=== PATIENT | female | born 1995 | race Two or more races ===

== ENCOUNTER → 2018-07-19 | Outpatient (CLI) | payer BC ==
--- NOTE | 2018-07-19 09:07 | US ---
EXAMINATION TYPE: US pelvic complete DATE OF EXAM: 07/19/2018 COMPARISON: NONE CLINICAL HISTORY: N93.8 Dysfunctional Uterine Bleeding. Abnormal uterine bleeding, pt states vaginal bleeding since April TECHNIQUE: Transabdominal (TA). Transabdominal sonographic images of the pelvis were acquired. Date of LMP: April EXAM MEASUREMENTS: Uterus: 8.0 x 3.2 x 7.0 cm Endometrial Stripe: 1.14 left, 1.1 right. Right Ovary: 3.0 x 2.7 x 2.1 cm Left Ovary: 1.5 x 2.2 x 1.4 cm 1. Uterus: Anteverted Bicornuate 2. Endometrium: Right Horn= 1.1 cm/ Left Horn= 1.1 cm 3. Right Ovary: Cyst= 2.3 x 2.0 x 1.7 cm 4. Left Ovary: wnl 5. Bilateral Adnexa: wnl 6. Posterior cul-de-sac: wnl Bicornuate uterus IMPRESSION: 1. Bicornuate uterus. 2. Right ovarian cyst. Follow-up ultrasound following the next normal menstrual period is recommended .
== END | disposition home or self-care (01) ==
LOC: RADUSWWP 08:18
PROVIDERS: ATTEND Family Medicine
DX: Q51.3 Bicornate uterus (principal); N83.201 Unspecified ovarian cyst, right side
CPT/HCPCS: 76856

== ENCOUNTER → 2021-09-27 | Outpatient (CLI) | payer BC ==
--- NOTE | 2021-09-27 09:00 | US ---
EXAMINATION TYPE: US abdomen comp/pelvis limited DATE OF EXAM: 09/27/2021 COMPARISON: NONE CLINICAL HISTORY: R10.9 ABDOMINAL PAIN. EXAM MEASUREMENTS: Liver Length: 16.1 cm Gallbladder Wall: 0.2 cm CBD: 0.6 cm Spleen: 10.9 cm Right Kidney: 13.0x6.2x5.0 cm Left Kidney: 12.6x5.4x5.3 cm Pancreas: Obscured by bowel gas Liver: Hypoechoic heterogenous area in the left lobe possible focal fatty sparring 1.7x2.0x1.4cm Gallbladder: Multiple folds. polyp 0.6cm CBD: 0.6 Spleen: wnl Right Kidney: No hydronephrosis or masses seen Left Kidney: No hydronephrosis or masses seen Upper IVC: wnl Abd Aorta: Obscured by overlying bowel gas Bladder: wnl Bilateral Jets Seen Yes Suboptimal evaluation pancreas on initial images. Visualized liver is heterogeneously hyperechoic whi ch makes evaluation for focal masses suboptimal. No surrounding ascites. Gallbladder is seen without shadowing mobile gallstones. Technologist mary nonshadowing nonmobile 6 mm intraluminal polyp. No in trahepatic biliary dilatation. Common bile duct measures upper limits of normal. No hydronephrosis se en bilaterally. Urinary bladder not greatly distended but bilateral distal ureter jets are seen. Ante verted uterus is noted. Spleen measures normal in size. Abdominal aorta not well visualized. IMPRESSION: Slightly suboptimal study, no acute findings are evident.
== END | disposition home or self-care (01) ==
LOC: RADUSWWP 07:34
PROVIDERS: ATTEND Family Medicine
DX: R10.9 Unspecified abdominal pain (principal)
CPT/HCPCS: 76700; 76857

== ENCOUNTER → 2021-10-11 | Outpatient (CLI) | payer BC ==
--- NOTE | 2021-10-11 15:39 | NM ---
EXAMINATION TYPE: NM hepatobiliary w EF DATE OF EXAM: 10/11/2021 COMPARISON: Ultrasound abdomen 09/27/2021 HISTORY: K 82.9 TECHNIQUE: After the intravenous administration of 5 mCi Tc 99m Mebrofenin hepatobiliary scintigraphy is performed. Immediate images post injection. FINDINGS: There is satisfactory initial accumulation of tracer by the liver. The gallbladder is visualized wit hin 10 minutes. The small bowel activity is noted within 6 minutes. At one hour 8 ounces of oral en sure plus is given to mimic CCK and gallbladder ejection fraction is calculated at 83 %, at the upper limit of the normal range. Therefore there is no scintigraphic evidence of cystic or common bile du ct obstruction to suggest acute cholecystitis or gallbladder dyskinesia. IMPRESSION: Exam is within normal limits.
== END | disposition home or self-care (01) ==
LOC: RADNMMAIN 13:01
PROVIDERS: ATTEND Family Medicine
DX: K82.9 Disease of gallbladder, unspecified (principal)
CPT/HCPCS: 78226; A9537